=== PATIENT | female | born 2000 | race Caucasian/White ===

== ENCOUNTER 2023-03-29 16:53 | Emergency (ER) | payer OTHER, MEDICAID, SELFPAY ==
[2023-03-29] VITALS (10 sets, daily range): BP systolic 106–146; BP diastolic 64–95; PULSE 68; RESP 20; TEMP 35.8; O2SAT 94–100
--- NOTE | ~2023-03-29 | CT_ITS ---
EXAMINATION: CT abdomen pelvis w con DATE: 03/29/2023 18:37 INDICATION: N/V, R sided abd pain TECHNIQUE: Computed tomography (CT) of the abdomen and pelvis was performed with 100 mL Omnipaque-350 intravenous contrast. Automated exposure control and iterative reconstruction technique were employe d. The dose-length product was 534.07 mGy-cm. COMPARISON: None. FINDINGS: Lower thorax: Unremarkable Liver: Normal. Biliary/Gallbladder: Gallbladder is normal. No bile duct dilation. Pancreas: No mass or duct dilation. Spleen: Normal. Adrenals:No mass. Kidneys: No suspicious mass, obstructing stone, or hydronephrosis. GI tract: Mild distal esophageal and gastric wall edema No small or large bowel dilation. Normal appe ndix. Mesentery/Peritoneum: No ascites, mass, or free air. Retroperitoneum: No mass. Pelvis: Arcuate uterus. Pelvic organs are otherwise within normal limits. Soft Tissues: Soft tissues and body wall unremarkable. Bones: No acute osseous finding. IMPRESSION: Mild esophagitis/gastritis. Otherwise, no acute abdominopelvic process detected Reviewed, dictated and finalized at location K.
[2023-03-29 17:58] LABS: Basophils Percent Auto 0.2 % (0.2-1.2); Hematocrit 46.7 % (37.0-47.0); Hemoglobin 15.4 g/dL (12.0-15.0); Immature Granulocyte Absolute 0.08 K/mm3 (0.00-0.031); Immature Granulocyte Percent A 0.5 % (0-0.5); Lymphocytes Absolute Auto 0.82 K/mm3 (0.9-3.2); Lymphocytes Percent Auto 5.1 % (18.3-44.2); Mean Corpuscular Hemoglobin 30.6 pg (26-34); Mean Corpuscular Volume 92.7 fl (80-100); Mean Platelet Volume 9.6 fl (7.4-10.4); Monocytes Absolute Auto 0.7 K/mm3 (0.1-0.6); Monocytes Percent Auto 4.1 % (2.6-8.5); Neutrophils Absolute Auto 14.6 K/mm3 (1.3-6.7); Neutrophils Percent Auto 90.1 % (45.5-73.1); Platelet Count Result 382 k/mm3 (150-375); Red Blood Count 5.04 M/mm3 (4.2-5.4); White Blood Count 16.2 K/mm3 (4.5-10.0)
--- NOTE | 2023-03-29 17:58 | ED.NAVMDI ---
HPI - Nausea/Vomiting/Diarrhea General Chief complaint: Nausea/Vomiting/Diarrhea Stated complaint: vomiting Time Seen by Provider: 03/29/23 17:10 Source: patient Mode of arrival: ambulatory Limitations: no limitations History of Present Illness HPI Narrative: Patient is a 22-year-old female who presents the ED with report of nausea and vomiting. Patient reports she began feeling ill this morning around 9:15 AM. She has had numerous episodes of vomiting. Unable to keep down any food or drink. She does report eating [employer] last night. Denies any other sick contacts. States she otherwise felt normal yesterday. She also reports subjective fevers today, denies abdominal pain, diarrhea, constipation, urinary symptoms, cough or cold symptoms. Related Data Allergies Allergy/AdvReac Type Severity Reaction Status Date / Time No Known Allergies Allergy Verified 03/29/23 17:57 Review of Systems Review of Systems: CONSTITUTIONAL: See HPI. ENT: Denies rhinorrhea, congestion, sore throat. CARDIOVASCULAR: Denies chest pain. RESPIRATORY: Denies dyspnea. GASTROINTESTINAL: See HPI. GENITOURINARY: Denies dysuria or hematuria. MUSCULOSKELETAL: Denies back pain, joint pain, or myalgia. All systems reviewed & are unremarkable except as noted in HPI and below Exam Narrative: GENERAL: Well appearing, well-nourished, non-toxic, in no acute distress. HEAD: Normocephalic, atraumatic. NECK: Supple. No adenopathy, no masses. RESPIRATORY: Airway patent, respirations nonlabored. Clear to auscultation bilaterally, no rales, rhonchi, wheezing. CARDIOVASCULAR: Regular rate and rhythm without murmurs, rubs, or gallops. Radial pulses 2+ and equal bilaterally. ABDOMINAL: Soft, mild tenderness in right upper abdomen and right lower abdomen. No rebound. Nondistended, no hepatosplenomegaly. Normoactive BS. MUSCULOSKELETAL: Moves all extremities. Strength/ROM intact without gross deformities. SKIN: Warm, dry, normal color. No rashes. NEURO: A&O X3. Speech clear. Cranial nerves II-XII grossly intact. Steady gait. No ataxic movements. PSYCHIATRIC: Anxious, intermittently shaking and reporting she is having a panic attack. Normal interaction. Course Vital Signs Vital signs: Vital Signs Temperature 96.4 F L 03/29/23 17:00 Pulse Rate 68 03/29/23 17:00 Respiratory Rate 20 03/29/23 17:00 Blood Pressure 146/95 H 03/29/23 17:00 Pulse Oximetry 98 03/29/23 17:00 Oxygen Delivery Room Air 03/29/23 17:00 Temperature 96.4 F L 03/29/23 17:00 Pulse Rate 68 03/29/23 17:00 Respiratory Rate 20 03/29/23 17:00 Blood Pressure 116/75 03/29/23 19:47 Pulse Oximetry 96 03/29/23 20:02 Oxygen Delivery Room Air 03/29/23 17:00 MDM - Nausea/Vomiting/Diarrhea MDM Narrative Medical decision making narrative: Patient presented to ED with nausea vomiting, unable to keep down food or drink. Onset today. Ate [employer] last night. No other sick contacts or bad food exposure. Vital stable upon arrival. Afebrile. Patient with mild right-sided abdominal tenderness on exam. CBC with leukocytosis of 16.2. Possible hemoconcentration/stress reaction from vomiting. Neutrophil predominance. CMP without significant abnormalities. Stable electrolytes and kidney function. UA with 2+ ketones, 1+ leuk esterase, 21-50 WBC, 3+ urine bacteria. Sent for culture. Will treat. COVID and influenza negative. CT abdomen pelvis obtained and without acute findings. No significant abnormalities noted. Patient given 2 L of fluid in the ED in addition to Zofran and Protonix. She is feeling much better with supportive therapy. Able to tolerate p.o. intake. Updated on lab and imaging findings. Patient feels comfortable with discharge home at this time. Advised close follow-up with primary care doctor. Will send Zofran at home for further nausea management. Return precautions discussed. Discharged in stable condition. Medical Records Attestation:
[2023-03-29 18:13] LABS: Alanine Aminotransferase 26 U/L (6-35); Albumin Level 5.4 g/dL (3.5-5.1); Alkaline Phosphatase 106 U/L (38-126); Anion Gap 11 mmol/L (8-16); Aspartate Amino Transferase 31 U/L (14-36); Bilirubin,Total 0.8 mg/dL (0.2-1.3); Blood Urea Nitrogen 9 mg/dL (7-17); Calcium 9.9 mg/dL (8.4-10.2); Carbon Dioxide 24 mmol/L (22-30); Chloride 107 mmol/L (98-107); Estimated CRCL calculation 120 ml/min; Estimated Glomerular Filt Rate > 60; Glucose 114 mg/dL (65-110); Lipase 73 U/L (23-300); Magnesium 1.9 mg/dL (1.6-2.3); Potassium 3.7 mmol/L (3.4-5.0); Sodium 142 mmol/L (137-145)
[2023-03-29 18:14] LABS: Appearance Urine Cloudy (Clear); Bacteria Urine 3+ /hpf; Bilirubin Urine Negative (Negative); Blood Urine Negative (Negative); Color Urine Yellow (Yellow); Glucose Urine UA Negative (Negative); Hyaline Casts Urine Present /lpf; Ketones Urine 2+ mg/dL (Negative); Leukocyte Esterase Ur 1+ LEU/UL (Negative); Nitrate Urine Negative (Negative); Non Pathogenic Casts 0-2; Protein Urine 1+ mg/dL (Negative); Specific Grav Ur 1.027 (1.001-1.035); Squamous Epithelial Cell Urine Moderate /hpf (Few); WBC Urine 21-50 /hpf; pH Urine 8.5 (5.0-9.0)
[2023-03-29 18:15] LABS: Add Urine Microscopic? YES
[2023-03-29] MEDS: ONDANSETRON INJ 4 MG/2 ML VIAL IV PUSH (18:43)
[2023-03-29] MEDS: PANTOPRAZOLE SODIUM IV 40 MG VIAL IV PUSH (18:43)
[2023-03-29] MEDS: SODIUM CHLORIDE 0.9% IV 1,000 ML 999 ML IV CONT ×2 (18:43)
[2023-03-29 19:23] LABS: Influenza A QL RT-PCR Negative (Negative); Influenza B QL RT-PCR Negative (Negative); SARS-CoV-2 RNA PCR Negative (Negative)
--- NOTE | 2023-03-29 19:25 | PC.NURSE ---
Report received from LORE Ames. Assumed care of patient at this time.
== END 2023-03-29 20:13 | disposition home or self-care (01) ==
PROVIDERS: Emergency Medicine; Emergency Provider Physician Assistant
DX: N30.01 Acute cystitis with hematuria (principal); R11.2 Nausea with vomiting, unspecified; Z20.822 Contact with and (suspected) exposure to COVID-19; K20.90 Esophagitis, unspecified without bleeding; K29.70 Gastritis, unspecified, without bleeding
CPT/HCPCS: 36415; 74177; 80053; 81001; 81025; 83690; 83735; 85025; 87086; 87636; 96361; 96374; 96375; 99284; C9113; J2405; J7030; Q9967

== ENCOUNTER 2023-09-30 22:35 | Emergency (ER) | payer OTHER, MEDICAID, SELFPAY ==
--- NOTE | ~2023-09-30 | CT_ITS ---
Noncontrast CT scan of the cervical spine Technique: Multiple contiguous axial [address] images of the cervical spine were obtained and rec onstructed in 2D sagittal and coronal planes on the acquisition scanner. Dose reduction technique was used on this scan by utilizing automated exposure control, adjustment of the mA and/or kV according to patient size. The dose-length product (DLP) was 398.11 mGy-cm. Clinical History: Pain Findings: No fractures or dislocations. Unremarkable visualized bony structures. The intervertebral disc spaces are preserved. No prevertebral soft tissue swelling. Impression: No fracture or subluxation of the cervical spine. Reviewed, dictated and finalized at location . Impression: No fracture or subluxation of the cervical spine.
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
[2023-09-30 22:46] VITALS: BP 105/63; PULSE 78; RESP 16; TEMP 36.9; O2SAT 97
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
[2023-10-01 03:55] VITALS: BP 110/68; PULSE 82; RESP 18; O2SAT 99
== END 2023-10-01 03:55 | disposition home or self-care (01) ==
PROVIDERS: Emergency Provider Emergency Medicine
DX: S09.90XA Unspecified injury of head, initial encounter (principal); V49.50XA Passenger injured in collision with unspecified motor vehicles in traffic accident, initial encounter
CPT/HCPCS: 70450; 72125; 99284

== ENCOUNTER 2023-12-20 12:13 | Emergency (ER) | payer OTHER, MEDICAID, SELFPAY ==
[2023-12-20 12:25] VITALS: BP 120/82; PULSE 78; RESP 16; TEMP 37.3; O2SAT 100
--- NOTE | 2023-12-20 12:48 | ED.NAVMDI ---
HPI - Nausea/Vomiting/Diarrhea General Chief complaint: Nausea/Vomiting/Diarrhea Stated complaint: Vomiting and Nausea Time Seen by Provider: 12/20/23 12:48 Source: patient Mode of arrival: ambulatory Limitations: no limitations History of Present Illness HPI Narrative: 23-year-old female presents with complaint of nausea vomiting, upset stomach for the past week. Patient is out of multiple medications to help with her depression, anxiety and bipolar. Patient thinks that her symptoms are related to being out of her medications. States she was recently taken off for her insurance and now has Medicaid. Does not have a primary care physician to refill her prescriptions. Patient able to keep down water. Patient is well-appearing. All systems reviewed and negative except as noted above. Related Data Home Medications Medication Instructions Recorded Confirmed escitalopram oxalate 10 mg tablet 10 mg PO DAILY 12/20/23 12/20/23 hydroxyzine HCl 25 mg tablet 25 mg PO DAILY 12/20/23 12/20/23 quetiapine 400 mg tablet,extended 400 mg PO DAILY 12/20/23 12/20/23 release 24 hr vilazodone 20 mg tablet 20 mg PO DAILY 12/20/23 12/20/23 Allergies Allergy/AdvReac Type Severity Reaction Status Date / Time No Known Allergies Allergy Verified 12/20/23 12:15 Review of Systems Review of Systems: CONSTITUTIONAL: Denies fever, chills, or sweats. EYES: Denies visual changes, redness, or discharge. ENT: Denies rhinorrhea, congestion, sore throat, or otalgia. CARDIOVASCULAR: Denies chest pain, palpitations, or edema. RESPIRATORY: Denies cough or dyspnea. GASTROINTESTINAL: Denies abdominal pain . Reports nausea, vomiting. Denies diarrhea. GENITOURINARY: Denies dysuria or hematuria. SKIN: Denies rash or itching. MUSCULOSKELETAL: Denies back pain, joint pain, or myalgia. NEUROLOGIC: Denies headache, numbness, or weakness. PSYCHIATRIC: Denies anxiety or depression. All other systems reviewed are negative, except as documented in HPI. PMFSH Comments At time of signature, agree with nursing past medical, surgical, social and family history. There is no relevant family history pertinent to the presenting complaint. Exam Narrative: GENERAL: This is a well-nourished, well-developed patient, in no apparent distress. HEAD: normocephalic, atraumatic. EYES: PERRL. Sclera clear/white. Vision is grossly intact. EARS: External ears normal NOSE: External nose normal NECK: Neck supple, non-tender without lymphadenopathy, masses or thyromegaly. CARDIOVASCULAR: Regular rate and rhythm without murmurs, gallops, or rubs. RESPIRATORY: Clear to auscultation. Breath sounds equal bilaterally. No wheezes, rales, or rhonchi. GASTROINTESTINAL: Abdomen soft, non-tender, nondistended. Bowel sounds are active. No hepato-splenomegaly, or palpable masses. No guarding. SKIN: warm, Dry, intact with no suspicious lesions or rash, good texture and turgor. NEURO: awake, alert, and oriented to person, place and time. There were no obvious focal neurologic abnormalities. EXTREMITIES: No joint tenderness, effusion, or edema noted. Course Course Level of Care: [facility] Visit Vital Signs Vital signs: Vital Signs Temperature 37.3 C 12/20/23 12:25 Pulse Rate 78 12/20/23 12:25 Respiratory Rate 16 12/20/23 12:25 Blood Pressure 120/82 12/20/23 12:25 Pulse Oximetry 100 12/20/23 12:25 Oxygen Delivery Room Air 12/20/23 12:25 Temperature 37.3 C 12/20/23 12:25 Pulse Rate 78 12/20/23 12:25 Respiratory Rate 16 12/20/23 12:25 Blood Pressure 120/82 12/20/23 12:25 Pulse Oximetry 100 12/20/23 12:25 Oxygen Delivery Room Air 12/20/23 12:25 reviewed MDM - Nausea/Vomiting/Diarrhea MDM Narrative Medical decision making narrative: patient is well-appearing. No nausea or vomiting while at [facility]. No abdominal tenderness on exam. Will refill patient's medications and give her 1 month supply. Refer to a pr
== END 2023-12-20 13:08 | disposition home or self-care (01) ==
PROVIDERS: Emergency Provider Nurse Practitioner Family
DX: R11.2 Nausea with vomiting, unspecified (principal); R19.7 Diarrhea, unspecified; F41.9 Anxiety disorder, unspecified; F31.9 Bipolar disorder, unspecified
CPT/HCPCS: 99213; G0463

== ENCOUNTER 2024-01-02 14:41 | Emergency (ER) | payer OTHER, MEDICAID, SELFPAY ==
--- NOTE | 2024-01-02 14:44 | ED.GENADULT ---
HPI - General Adult General Chief complaint: Nausea/Vomiting/Diarrhea Stated complaint: diarrhea, stomach issues, tired Time Seen by Provider: 01/02/24 14:56 Source: patient, RN notes reviewed and old records reviewed Mode of arrival: ambulatory Limitations: no limitations History of Present Illness HPI narrative: 23-year-old female presents to the [facility] with complaints of diarrhea for a month, stomach issues and feeling tired. 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 Patient was seen 2 weeks ago, did a 1 month refill for her medications and was told to follow-up. Patient was also seen at that time for diarrhea and stomach issues, was told to follow-up or go to the ER. Patient reports that she is still having issues and it has been getting worse. Last menstrual period started on 30 December 2023 Denies any urinary symptoms. Onset (ago): month(s) (1) Treatments prior to arrival: none Related Data Home Medications Medication Instructions Recorded Confirmed escitalopram oxalate 10 mg tablet 10 mg PO DAILY 12/20/23 01/02/24 vilazodone 20 mg tablet 20 mg PO DAILY 12/20/23 01/02/24 Allergies Allergy/AdvReac Type Severity Reaction Status Date / Time No Known Allergies Allergy Verified 01/02/24 14:44 Review of Systems Review of Systems: All systems reviewed & are unremarkable except as noted in HPI and below Constitutional: Constitutional: Reports no additional constitutional complaints Eyes: Eyes: Reports no additional eye complaints ENT: Reports system reviewed and no additional complaints, except as documented Cardiovascular: Cardiovascular: Reports no additional cardiovascular complaints, Denies chest pain and Denies dyspnea Respiratory: Respiratory: Reports no additional respiratory complaints, Denies chest congestion, Denies cough and Denies dyspnea Gastrointestinal: Gastrointestinal: Reports as per HPI, Reports abdominal pain (Epigastric, right upper quadrant), Reports GI cramping, Reports diarrhea, Reports nausea and Reports vomiting Genitourinary: Genitourinary: Reports no additional female genitourinary complaints Musculoskeletal: Musculoskeletal: Reports no additional musculoskeletal complaints Integumentary/Breasts: Skin/Breast: Reports system reviewed and no additional complaints, except as docu Neurologic: Reports system reviewed and no additional complaints, except as documented Psychiatric: Psychiatric: Reports no additional psychiatric complaints Allergic/Immunologic: Allergic/Immunologic: Reports no additional allergic/immunologic complaints PMFSH Past Medical History Medical History Anxiety and depression Social History Social History (Updated 01/02/24 @ 15:12 by Aniya Melo APRN) Gender identity (if verbalized by the patient): Female Comments At the time of my signature, I reviewed and agree with the nursing past medical, surgical, social, and family history. There is no relevant family history pertinent to the patient complaint. Exam Const: General: cooperative, no acute distress, well developed, alert, poor hygiene, uncomfortable and well nourished Nutritional Appearance: well nourished and obese Orientation/consciousness: patient oriented x3 Limitations: no limitations HENMT: Head: normal to inspection Ears: hearing grossly normal bilaterally and external ears normal Face/Nose/Sinus: Normal external nose present, Normal nares present, Normal nasal mucous membranes and turbinates present, normal facial exam and face symmetric Face and sinus: normal facial exam and face symmetric Mouth: Yes Normal oral and palatal mucosa present, Yes lip normal and Yes tongue normal Throat: posterior oropharynx normal Eyes: General: appearance normal, both eyes and all related structures Alignment and Position: alignment normal Periorbital: periorbital
[2024-01-02 14:58] VITALS: BP 108/69; PULSE 76; RESP 16; TEMP 36.4; O2SAT 100
== END 2024-01-02 15:05 | disposition left against medical advice (07) ==
PROVIDERS: Emergency Provider Nurse Practitioner
DX: R19.7 Diarrhea, unspecified (principal); R10.10 Upper abdominal pain, unspecified; F41.9 Anxiety disorder, unspecified; F32.A Depression, unspecified
CPT/HCPCS: 99211; G0463